=== PATIENT | male | born 1965 | race African-American/Black ===

== ENCOUNTER 2019-03-12 13:20 | Emergency (ER) | payer MEDICAID ==
[~2019-03-12] VITALS: Ht 172.7 cm; Wt 100.0 kg
[2019-03-12 15:13] LABS: CHLORIDE 105 mEq/L (98-107)
[2019-03-12 15:14] LABS: PROTHROMBIN TIME 10.2 sec (9.6-11.0)
[2019-03-12 15:29] LABS: EOSINOPHILS % 1.5 % (0.0-5.0); HEMATOCRIT. 45.5 % (42.0-52.0); HEMOGLOBIN. 15.2 g/dL (14.0-18.0); LYMPHOCYTES % 31.6 % (20.0-50.0); MEAN CORPUSCULAR HEMOGLOBIN 29.1 pg (28.0-32.0); MEAN CORPUSCULAR VOLUME 86.9 fL (80.0-94.0); MEAN PLATELET VOLUME 8.6 fl (7.4-10.4); MONOCYTES % 6.2 % (2.0-8.0); NEUTROPHILS % 59.7 % (40.0-76.0); PLATELET 206 x1000/uL (130-400); RED BLOOD CELL COUNT 5.24 mill/uL (4.7-6.1); RED CELL DISTRIBUTION WIDTH 16.1 % (11.6-14.6)
[2019-03-12 15:37] VITALS: BP 144/97
[2019-03-12 16:05] LABS: CLARITY URINE CLEAR (CLEAR); COLOR URINE YELLOW (YELLOW); KETONES URINE TRACE (NEGATIVE); LEUKOCYTE ESTERASE URINE NEGATIVE (NEGATIVE); NITRITE URINE NEGATIVE (NEGATIVE); OCCULT BLOOD URINE NEGATIVE (NEGATIVE); PH URINE 5.5 (4.5-8.0); PROTEIN URINE NEGATIVE (NEGATIVE); SPECIFIC GRAVITY URINE 1.024 (1.005-1.030)
== END 2019-03-12 16:13 | disposition home or self-care (01) ==
LOC: ER 13:20
DX: G90.8 Other disorders of autonomic nervous system (principal); I10 Essential (primary) hypertension
CPT/HCPCS: 36415; 71045; 83605; 83880; 84484; 93005; 99284

== ENCOUNTER 2020-12-24 01:28 | Emergency (ER) | payer MEDICAID ==
[~2020-12-24] VITALS: Ht 172.7 cm; Wt 91.0 kg
[2020-12-24 01:48] VITALS: BP 209/120
[2020-12-24] MEDS ORDERED: ACETAMINOPHEN 325MG TABLET PO ONE (02:15)
[2020-12-24] MEDS ORDERED: DOCUSATE SODIUM SUGAR FREE 100MG/10ML UDC NG ONE (02:15)
== END 2020-12-24 04:00 | disposition home or self-care (01) ==
LOC: ER 01:28
DX: H92.02 Otalgia, left ear (principal); H61.22 Impacted cerumen, left ear
CPT/HCPCS: 99282